=== PATIENT | female | born 1980 | race Caucasian/White ===

== ENCOUNTER → 2021-01-07 12:15 | Outpatient (BNVA) | payer MEDICARE, MEDICAID, SELFPAY | PROVIDERS: PCP Internal Medicine; Visit Provider Physician Assistant Surgical ==

== ENCOUNTER → 2021-01-11 08:12 | Outpatient (BNVA) | payer MEDICARE, MEDICAID, SELFPAY | PROVIDERS: PCP Internal Medicine; Visit Provider Surgery | CPT/HCPCS: Q3014 ==

== ENCOUNTER 2021-01-20 13:51 | Outpatient (REF) | payer MEDICARE, MEDICAID, SELFPAY ==
[2021-01-20 14:13] LABS: MANUAL DIFF FLAG NO
[2021-01-20 14:24] LABS: Basophils Percent Auto 0.4 % (0-2); Eosinophils Absolute Auto 0.3 X10*3/uL (0.0-0.4); Hematocrit 41.1 % (37-47); Imm Gran Abs Auto 0.02 X10*3/uL (0.00-0.03); Imm Gran Pct Auto 0.3 % (0.0-0.4); Lymphocytes Absolute Auto 2.2 X10*3/uL (1.2-4.9); Mean Corpuscular HGB Conc 34.1 g/dl (31.0-35.0); Mean Corpuscular Hemoglobin 28.6 pg (27.0-33.0); Mean Corpuscular Volume 83.9 fL (80-98); Mean Platelet Volume 9.2 fL (9.4-12.3); Monocytes Absolute Auto 0.5 X10*3/uL (0.1-1.2); Monocytes Percent Auto 6.3 % (2-11); Neutrophils Absolute Auto 4.4 X10*3/uL (2.0-8.3); Platelet Count 321 X10*3/uL (160-400); Red Cell Distribution Width 12.8 % (11.0-16.0); White Blood Count 7.4 X10*3/uL (4.8-10.8)
[2021-01-20 14:52] LABS: Alanine Aminotransferase 29 U/L (0-31); Albumin Level 4.2 g/dL (3.5-5.0); Alkaline Phosphatase 58 U/L (39-117); Anion Gap 12 (12-20); Aspartate Amino Transferase 17 U/L (5-31); Bilirubin Total 0.5 mg/dL (0.0-1.0); Blood Urea Nitrogen 12 mg/dL (9-16); C Reactive Protein 0.12 mg/dL (< or = 0.50); Calcium 9.3 mg/dL (8.4-10.2); Carbon Dioxide 23 mmol/L (22-29); Chloride 105 mmol/L (96-108); Cholesterol 157 mg/dL; Estimated Glomerular Filt Rate > 60; Glucose Random 84 mg/dL (60-115); HDL Cholesterol 42 mg/dL; Iron 64 mcg/dL (30-160); LDL Cholesterol Calculated 87 mg/dl; Percent Iron Saturation 19 % (15-50); Potassium 4.3 mmol/L (3.3-5.1); Sodium 136 mmol/L (135-145); Total Iron Binding Capacity 333 mcg/dL (228-428); Total Protein 7.2 g/dL (6.5-8.0); Triglycerides 141 mg/dL; Unsaturated Iron Binding 269 ug/dL
[2021-01-20 15:17] LABS: Estimated Average Glucose 100 mg/dL; Hemoglobin A1c % 5.1 %
[2021-01-20 15:33] LABS: Ferritin 166 ng/mL (10-250); Vitamin D 25-OH Total 25.1 ng/mL (>30)
[2021-01-20 15:51] LABS: Folate 10.5 ng/mL (> or = 4.0); Vitamin B12 413 pg/mL (200-900)
[2021-01-20 16:03] LABS: Insulin 9 uU/mL (2-29)
[2021-01-21 16:46] LABS: Calcium (PTHI) 9.2 mg/dL (8.6-10.2); PTHI 95 pg/mL (14-64)
[2021-01-24 12:02] LABS: Vitamin B1 9 nmol/L (8-30)
[2021-01-24 15:47] LABS: Zinc 70 mcg/dL (60-130)
[2021-01-25 15:01] LABS: Vitamin A 62 mcg/dL (38-98)
== END 2021-01-20 13:52 | disposition home or self-care (01) ==
LOC: HO.LAB 13:51
PROVIDERS: PCP Internal Medicine; Visit Provider Surgery
DX: E66.01 Morbid (severe) obesity due to excess calories (principal); J45.909 Unspecified asthma, uncomplicated; K21.9 Gastro-esophageal reflux disease without esophagitis
CPT/HCPCS: 36415; 80053; 80061; 82306; 82607; 82728; 82746; 83036; 83525; 83540; 83970; 84425; 84443; 84590; 84630; 85025; 86140

== ENCOUNTER 2021-02-03 13:56 | Outpatient (REF) | payer MEDICARE, MEDICAID, SELFPAY ==
--- NOTE | ~2021-02-03 | XR_ITS ---
EXAMINATION: XR CHEST CLINICAL INFORMATION: Morbid obesity due to excess calories. COMPARISON: None TECHNIQUE: 2 views of the chest were obtained. FINDINGS: The lungs are well expanded. There is no focal consolidation, edema, or effusion. No pneumothorax. The cardiomediastinal silhouette is within normal limits. No acute osseous abnormality. XR/XR chest 2V IMPRESSION: Clear lungs.
--- NOTE | 2021-02-03 14:01 | ECG_ITS ---
Test Reason : morbid obesity Blood Pressure : / mmHG Vent. Rate : 066 BPM Atrial Rate : 066 BPM P-R Int : 140 ms QRS Dur : 078 ms QT Int : 424 ms P-R-T Axes : 073 049 045 degrees QTc Int : 444 ms Normal sinus rhythm Normal ECG No previous ECGs available Referred By: Charlie Schwartz Electronically Signed By:DALY TOURE MD
== END 2021-02-03 13:57 | disposition home or self-care (01) ==
LOC: HO.XRAY 13:56
PROVIDERS: PCP Internal Medicine; Visit Provider Surgery
DX: E66.01 Morbid (severe) obesity due to excess calories (principal); J45.909 Unspecified asthma, uncomplicated; K21.9 Gastro-esophageal reflux disease without esophagitis
CPT/HCPCS: 71046; 93005

== ENCOUNTER → 2021-02-08 08:08 | Outpatient (BNVA) | payer MEDICARE, MEDICAID, SELFPAY | PROVIDERS: PCP Internal Medicine; Visit Provider Surgery | DX: E66.01 Morbid (severe) obesity due to excess calories (principal); Z68.41 Body mass index [BMI] 40.0-44.9, adult | CPT/HCPCS: Q3014 ==

== ENCOUNTER 2021-02-10 13:26 | Outpatient (REF) | payer MEDICARE, MEDICAID, SELFPAY ==
[2021-02-11 11:57] LABS: H Pylori Breath Test Positive (Negative)
== END 2021-02-10 13:27 | disposition home or self-care (01) ==
LOC: CF 13:26
PROVIDERS: Visit Provider Surgery
DX: E66.01 Morbid (severe) obesity due to excess calories (principal); J45.909 Unspecified asthma, uncomplicated; K21.9 Gastro-esophageal reflux disease without esophagitis
CPT/HCPCS: 36415; 83013; 99211

== ENCOUNTER → 2021-02-11 08:04 | Outpatient (BNVA) | payer MEDICARE, MEDICAID, SELFPAY | PROVIDERS: PCP Internal Medicine; Visit Provider Dietitian, Registered | DX: E66.01 Morbid (severe) obesity due to excess calories (principal) | CPT/HCPCS: 97802 ==

== ENCOUNTER 2021-02-19 07:49 | Outpatient (REF) | payer MEDICARE, MEDICAID, SELFPAY ==
--- NOTE | ~2021-02-19 | US_ITS ---
EXAMINATION: US COMPLETE ABDOMEN WITH LIVER ELASTOGRAPHY CLINICAL INFORMATION: Morbid to severe obesity due to excess calories. COMPARISON: None. TECHNIQUE: Real-time imaging of the abdominal viscera. Noninvasive ultrasound liver fibrosis assessment is performed using Pooja ElastPQ point quantification shear wave elastography (pSWE) with a C5-2 MHz transducer. Multiple elastography samples are obtained. FINDINGS: PANCREAS: The visualized pancreatic head and body are normal in appearance. The remainder of the pancreatic body and the tail is obscured from visualization by the overlying bowel gas. ABDOMINAL AORTA: The proximal, middle, and distal aortic segments are normal in caliber. INFERIOR VENA CAVA: Visualized portions are normal. LIVER: The liver demonstrates normal size, contour and increased echogenicity. No focal lesion or intrahepatic biliary duct dilatation. The right lobe measures 18.1 cm in length. The left lobe measures 12.5 cm in length. Minimal free fluid is seen adjacent to the left lobe and adjacent to the gallbladder. Portal flow is hepatopedal. Shear wave liver elastography median stiffness is 1.33 m/s (reference: normal median stiffness is 1.3 m/s or less). IQR/median stiffness to assess sampling precision is 0.09 (reference: good quality data set is IQR/median stiffness of 0.15 or less). GALLBLADDER: Normal. The gallbladder is physiologically distended without evidence of stones, sludge, polyps, wall thickening or pericholecystic fluid. COMMON BILE DUCT: Normal in caliber measuring 0.25 cm in diameter. RIGHT KIDNEY: Normal. No hydronephrosis. No renal calculi or focal parenchymal lesions. The kidney measures 10.3 cm in maximum dimension. LEFT KIDNEY: Normal. No hydronephrosis. No renal calculi or focal parenchymal lesions. The kidney measures 11.0 cm in maximum dimension. SPLEEN: Normal. The spleen measures 10.1 cm in maximum dimension. FREE FLUID: None. US/US abdomen comp w elastography IMPRESSION: 1. Minimal free fluid adjacent to the left hepatic lobe and the gallbladder. 2. Mildly echogenic liver with hypertrophy. Left hepatic lobe probable small cyst. 3. Liver elastography: High probability normal. REFERENCE: Society of [employer]iologists in Ultrasound Liver Stiffness Thresholds (2020): LIVER STIFFNESS THRESHOLDS: *Liver Stiffness equal or less than 1.3 m/s: High probability of being normal. *Liver Stiffness less than 1.7 m/s: In the absence of other known clinical signs, rules out compensated advanced chronic liver disease. *Liver Stiffness 1.7-2.1 m/s: Suggestive of compensated advanced chronic liver disease but need further test for confirmation. *Liver Stiffness over 2.1 m/s: Rules in compensated advanced chronic liver disease. *Liver Stiffness over 2.4 m/s: Suggestive of clinically significant portal hypertension. QUALITY OF DATA SET: *IQR/Median value equal or less than 0.15 implies a quality data set. *IQR/Median value over 0.15 implies a poor quality data set. SIGNIFICANT CHANGE FROM PRIOR EXAM: Significant change if liver stiffness measurement is 10% or greater from prior exam. OTHER CONSIDERATIONS: The stage of liver fibrosis may be overestimated in the setting of acute hepatitis, liver inflammation, elevated liver function tests, hepatic vascular congestion, obstructive cholestasis, non-fasting state, and infiltrative diseases such as amyloidosis and lymphoma. In some patients with NAFLD, the liver stiffness thresholds for compensated advanced chronic liver disease may be lower. In causes other than viral hepatitis and NAFLD, liver stiffness thresholds are not well established.
--- NOTE | ~2021-02-19 | FL_ITS ---
EXAMINATION: FL UPPER GI SERIES CLINICAL INFORMATION: Bariatric service evaluation. Prior history of esophageal stricture with dilatation performed at [facility]. No heartburn or abdominal pain. COMPARISON: None TECHNIQUE: Upper GI series is performed using fluoroscopic evaluation in addition to multiple fluoroscopic spot views. The patient is imaged both upright and prone and using both thick and thin barium sulfate along with effervescent granules. Fluoroscopy time: 1.0 minutes DAP: 12.033 Gycm2 Fluoroscopic spot images: 17 FINDINGS: There is normal esophageal motility. There is no obstruction or stricture or ulceration. There is borderline physiologic herniation at the esophagogastric junction during prone Valsalva maneuver but no overt hiatal hernia. No gastroesophageal reflux is demonstrated. The stomach shows no thickened folds or ulcer crater or outlet obstruction. The duodenal bulb is pliable and without ulcer crater or scarring. The post bulbar duodenum the jejunal mucosal pattern are unremarkable. FL/FL upper GI series IMPRESSION: Normal study.
== END 2021-02-19 07:50 | disposition home or self-care (01) ==
LOC: HO.US 07:49
PROVIDERS: PCP Internal Medicine; Visit Provider Surgery
DX: E66.01 Morbid (severe) obesity due to excess calories (principal); K21.9 Gastro-esophageal reflux disease without esophagitis; J45.909 Unspecified asthma, uncomplicated
CPT/HCPCS: 74240; 76705; 76981

== ENCOUNTER → 2021-03-01 08:17 | Outpatient (BNVA) | payer MEDICARE, MEDICAID, SELFPAY | PROVIDERS: PCP Internal Medicine; Visit Provider Surgery | CPT/HCPCS: Q3014 ==

== ENCOUNTER 2021-03-12 13:57 | Outpatient (REF) | payer MEDICARE, MEDICAID, SELFPAY ==
[2021-03-14 13:26] LABS: H Pylori Breath Test Negative (Negative)
== END 2021-03-12 13:58 | disposition home or self-care (01) ==
LOC: HO.LNP 13:57
PROVIDERS: Physician Assistant; PCP Internal Medicine; Visit Provider Surgery
DX: Z01.818 Encounter for other preprocedural examination (principal); Z11.0 Encounter for screening for intestinal infectious diseases
CPT/HCPCS: 83013; 99211

== ENCOUNTER → 2021-03-31 07:50 | Outpatient (BNVA) | payer MEDICARE, MEDICAID, SELFPAY | PROVIDERS: PCP Internal Medicine; Visit Provider Surgery | CPT/HCPCS: Q3014 ==

== ENCOUNTER → 2021-04-23 08:22 | Outpatient (BNVA) | payer MEDICARE, MEDICAID, SELFPAY | PROVIDERS: PCP Internal Medicine; Visit Provider Surgery | DX: E66.01 Morbid (severe) obesity due to excess calories (principal); Z68.41 Body mass index [BMI] 40.0-44.9, adult | CPT/HCPCS: Q3014 ==

== ENCOUNTER 2021-04-28 09:05 | Outpatient (REF) | payer MEDICARE, MEDICAID, SELFPAY | END 2021-04-28 09:06 | disposition home or self-care (01) | LOC: HO.LAB 09:05 | PROVIDERS: Surgery; Visit Provider Internal Medicine | DX: Z20.822 Contact with and (suspected) exposure to COVID-19 (principal) | CPT/HCPCS: U0003; U0005 ==